=== PATIENT | female | born 1955 | race Caucasian/White ===

== ENCOUNTER → 2016-11-17 | Outpatient (CLI) | payer BC | LOC: RAD 06:57 | PROVIDERS: ATTEND Family Medicine | DX: M54.12 Radiculopathy, cervical region (principal) | CPT/HCPCS: 72141 ==

== ENCOUNTER → 2017-04-11 | Outpatient (CLI) | payer BC ==
[2017-04-11 18:18] LABS: ANION GAP 10 (5-19); BLOOD UREA NITROGEN 23 mg/dL (7-20); CALCIUM 10.3 mg/dL (8.4-10.2); CARBON DIOXIDE 28 mmol/L (22-30); CHLORIDE 102 mmol/L (98-107); CREATININE RESULT 0.67 mg/dL (0.52-1.25); GLUCOSE 100 mg/dL (75-110); POTASSIUM 4.2 mmol/L (3.6-5.0)
--- NOTE | 2017-04-12 08:44 | RADIOLOGY REPORT (SQ) ---
EXAM DESCRIPTION: ANKLE RIGHT COMPLETE COMPLETED DATE/TIME: 04/11/2017 7:01 pm REASON FOR STUDY: PAIN IN RIGHT FOOT I80.201 PHLBTS AND THOMBOPHLB OF UNSP DEEP VESSELS OF R LOW E 87.70 FLUID OVERLOAD, UNSPECIFIED COMPARISON: Right foot three views same date NUMBER OF VIEWS: Three views. TECHNIQUE: AP, lateral, and oblique radiographic images acquired of the right ankle. LIMITATIONS: None. FINDINGS: MINERALIZATION: Normal. BONES: No acute fracture or dislocation. Prominent plantar calcaneal spur. Small spur at the Achill es attachment to the calcaneus. JOINTS: No effusions. Normal alignment at the ankle mortise. SOFT TISSUES: Mild medial and lateral soft tissue swelling. No foreign body. OTHER: No other significant finding. IMPRESSION: No acute fracture or malalignment. Dorsal and plantar calcaneal spurs. Mild subcutaneo us edema. TECHNICAL DOCUMENTATION: JOB ID: [id number] [employer]- All Rights Reserved
--- NOTE | 2017-04-12 08:45 | RADIOLOGY REPORT (SQ) ---
EXAM DESCRIPTION: FOOT RIGHT COMPLETE COMPLETED DATE/TIME: 04/11/2017 7:01 pm REASON FOR STUDY: PAIN IN RIGHT FOOT I80.201 PHLBTS AND THOMBOPHLB OF UNSP DEEP VESSELS OF R LOW E 87.70 FLUID OVERLOAD, UNSPECIFIED COMPARISON: Right ankle three views same date NUMBER OF VIEWS: Three views. TECHNIQUE: AP, lateral and oblique radiographic images acquired of the right foot. LIMITATIONS: None. FINDINGS: MINERALIZATION: Normal. BONES: No acute fracture or dislocation. Plantar and dorsal calcaneal spurs. JOINTS: No ankle joint effusion. SOFT TISSUES: No soft tissue swelling. No foreign body. OTHER: No other significant finding. IMPRESSION: Dorsal and plantar calcaneal spurs. No acute fracture or malalignment. TECHNICAL DOCUMENTATION: JOB ID: [id number]- All Rights Reserved
== END ==
LOC: LAB 17:37
PROVIDERS: ATTEND Family Medicine
DX: I80.201 Phlebitis and thrombophlebitis of unspecified deep vessels of right lower extremity (principal); E87.70 Fluid overload, unspecified; M79.671 Pain in right foot
CPT/HCPCS: 36415; 80048; 85379

== ENCOUNTER 2017-09-16 18:11 | Emergency (ER) | payer OTHER, BC ==
--- NOTE | 2017-09-16 21:12 | RADIOLOGY REPORT (SQ) ---
EXAM DESCRIPTION: KNEE RIGHT 4 VIEWS COMPLETED DATE/TIME: 09/16/2017 8:48 pm REASON FOR STUDY: pain swelling decreased range of motion COMPARISON: None. NUMBER OF VIEWS: Four views. TECHNIQUE: AP, lateral, and both oblique radiographic images acquired of the right knee. LIMITATIONS: None. FINDINGS: Lucency in the lateral femoral epicondylar region, seen best on the oblique projection, co ncerning for possible lytic lesion. No fracture identified. No joint effusion. OTHER: No other significant finding. IMPRESSION: Lucency in the lateral femoral epicondylar region, seen best on the oblique projection, concerning for possible lytic lesion. No fracture identified. TECHNICAL DOCUMENTATION: JOB ID: [id number] [place]-72 2010 [employer]- All Rights Reserved Reading location - IP/workstation name: [email or web address]
--- NOTE | 2017-09-16 22:05 | ER Document Report ---
ED Extremity Problem, Lower - General Chief Complaint: Knee Pain Stated Complaint: RIGHT KNEE PAIN Time Seen by Provider: 09/16/17 19:05 Mode of Arrival: Wheelchair Information source: Patient Notes: 62-year-old female presented ED for complaint of right knee pain. Patient states she has chronic knee pain but is getting much worse. She states over the last 3 weeks it it got much worse and today it is worse than it has ever been. 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 She states that she has been going [id number] getting stuck for a repair of a house and she got up to the car and was not able to walk back due to the pain in her knee. She states she had a walker seat that she pulled out so that she could use it to get around. TRAVEL OUTSIDE OF THE [place] IN LAST 30 DAYS: No - HPI Patient complains to provider of: Pain, Swelling Location: Knee Occurred: Other - The last 3 weeks and even worse today Onset/Duration: Gradual Quality of pain: Burning, Sharp, Throbbing Severity: Severe Pain Level: 5 Context: Other - Chronic worse Recent injury: No Associated symptoms: Painful ambulation Exacerbated by: Hanging down, Movement, Walking Relieved by: Elevation, Ice, Rest - Related Data Allergies/Adverse Reactions: No Known Allergies Allergy (Verified 09/16/17 18:13) Past Medical History - General Information source: Patient - Social History Smoking Status: Former Smoker Cigarette use (# per day): No Chew tobacco use (# tins/day): No Smoking Education Provided: No Frequency of alcohol use: Occasional Drug Abuse: None 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 Lives with: Family Family History: Reviewed & Not Pertinent Patient has suicidal ideation: No Patient has homicidal ideation: No - Past Medical History Cardiac Medical History: Reports: Hx Hypercholesterolemia, Hx Hypertension Pulmonary Medical History: Reports: Hx Asthma, Hx Bronchitis, Hx Pneumonia EENT Medical History: Reports: None Neurological Medical History: Reports: None Endocrine Medical History: Reports: Hx Diabetes Mellitus Type 2 Renal/ Medical History: Reports: None Malignancy Medical History: Reports: None GI Medical History: Reports: Hx Gastroesophageal Reflux Disease, Hx Colonoscopy , Hx Endoscopy Musculoskeltal Medical History: Reports Hx Arthritis, Reports Hx Musculoskeletal Deformity, Reports Hx Musculoskeletal Trauma Skin Medical History: Reports Hx Cellulitis, Reports Hx MRSA Psychiatric Medical History: Reports: None Traumatic Medical History: Reports: None Infectious Medical History: Reports: Hx MRSA Past Surgical History: Reports: Hx Appendectomy, Hx Tubal Ligation - Immunizations Hx Diphtheria, Pertussis, Tetanus Vaccination: Yes - 2012 Review of Systems - Review of Systems Constitutional: No symptoms reported EENT: No symptoms reported Cardiovascular: No symptoms reported Respiratory: No symptoms reported Gastrointestinal: No symptoms reported Genitourinary: No symptoms reported Female Genitourinary: No symptoms reported Musculoskeletal: Joint pain - Right knee, Joint swelling Skin: No symptoms reported Hematologic/Lymphatic: No symptoms reported Neurological/Psychological: No symptoms reported Physical Exam - Vital signs Vitals: Temp Pulse Resp BP Pulse Ox 98.7 F 83 20 145/54 H 95 09/16/17 18:18 09/16/17 18:18 09/16/17 18:18 09/16/17 18:18 09/16/17 18:18 Interpretation: Normal - General General appearance: Appears well, Alert - HEENT Head: Normocephalic, Atraumatic Eyes: Normal Pupils: PERRL - Respiratory Respiratory status: No respiratory distress Chest status: Nontender Breath sounds: Normal Chest palpation: Normal - Cardiovascular Rhythm: Regular Heart sounds: Normal auscultation Murmur: No - Abdominal Inspection: Normal Distension: No distension Bowel sounds: Normal Tenderness: Nontender Organomegaly: No organomegaly - Back Back: Normal, Nontender - Extremities General upper extremity: Normal inspection, Nontender, Normal color, Normal ROM , Normal temperature General lower extremity: Normal color, Normal temperature. No: Jacquelyn's sign Hip: Normal, Nontender Thigh: Nontender, Ecchymosis Knee: Tender, Pain with ROM, Patellar tendon intact, Tender joint line. No: Abrasion, Deformity, Dislocation, Drawer's test instability, Ecchymosis, Instability, Laceration, Laxity with valgus stress, Laxity with varus stress, Popliteal fossa tender, Unable to bear weight - Neurological Neuro grossly intact: Yes Cognition: Normal Orientation: AAOx4 Elis Coma Scale Eye Opening: Spontaneous Elis Coma Scale Verbal: Oriented [place] Coma Scale Motor: Obeys Commands [place] Coma Scale Total: 15 Speech: Normal Motor strength normal: LUE, RUE, LLE, RLE Sensory: Normal - Psychological Associated symptoms: Normal affect, Normal mood - Skin Skin Temperature: Warm Skin Moisture: Dry Skin Color: Normal Course - Re-evaluation Re-evalutation: 09/17/17 01:31 Discussed x-ray with patient and written report given to patient. Patient encouraged to follow-up with primary doctor and orthopedics on Tuesday due to the abnormality on the x-ray. Patient verbalized understanding. Patient was given a [place] in the emergency room and instructed on use of ice elevation ibuprofen and Tylenol. Patient verbalized understanding of instructions. - Vital Signs Vital signs: Temp Pulse Resp BP Pulse Ox 98.7 F 84 16 122/72 95 09/16/17 18:18 09/16/17 22:15 09/16/17 22:15 09/16/17 22:15 09/16/17 22:15 - Diagnostic Test Radiology reviewed: Image reviewed, Reports reviewed Discharge - Discharge Clinical Impression: possible lytic lesion femoral epicondyla Pain in right knee Qualifiers: Chronicity: acute Qualified Code(s): M25.561 - Pain in right knee Condition: Stable Disposition: HOME, SELF-CARE Additional Instructions: You were seen today for pain in your right knee. Your x-ray shows a possible lytic lesion to the lateral femoral epicondylar region. This needs to be followed up by your primary doctor and an orthopedic doctor. ICE & ELEVATION: Apply ice packs frequently against the painful area. Many different schedules are recommended, such as "20 minutes on, 20 minutes off" or "one hour ice, two hours rest." If you need to work, you may need to go longer between ice treatments. You should plan to have the area ice packed AT LEAST one- fourth of the time. The ice should be applied over the wrap, tape, or splint, or over a layer of cloth -- not directly against the skin. Some ice bags have a built-in cloth and can be put directly on the skin. Your injured part should be elevated as much as possible over the next 48 hours. Try to keep the injury above the level of the heart. Avoid use of the injured area. Elevation and rest will decrease the swelling. USE OF [id number] IBUPROFEN: Ibuprofen (Advil, Nuprin, Medipren, Motrin IB) is a medication for fever and pain control. In addition, it has anti- inflammatory effects which may be beneficial, especially in the treatment of injuries. It's best to take ibuprofen with food. Persons with ulcer disease or allergy to aspirin should notify their physician of this before taking ibuprofen. Ibuprofen can be given every four to six hours, for a total of four doses daily. Age Pain or fever dose Antiinflammatory dose 6-8 yr 200 mg (1 tab) 200 mg (1 tab) 9-11 yr 200 mg (1 tab) 200-400 mg (1-2 tab) 11-14 yr 200-400 mg (1-2 tab) 400 mg (2 tab) 15-adult 400 mg (2 tab) 600 mg (3 tab) ORAL NARCOTIC MEDICATION: You have been given a [place] for pain control. This medication is a narcotic. It's best taken with food, as nausea can result if taken on an empty stomach. Don't operate machinery or drive within six hours of taking this medication. Do not combine this medicine with alcohol, or with any medication which can cause sedation (such as cold tablets or sleeping pills) unless you get permission from the physician. Narcotics tend to cause constipation. If possible, drink plenty of fluids and eat a diet high in fiber and fruits. Please be aware that prescription narcotics also have the potential for abuse. People become addicted to these medications because of the general sense of wellbeing that they induce. This feeling along with a significant reduction in tension, anxiety, and aggression provides a stimulating seductive quality to these drugs. Once your pain is under control, we encourage you to discard your unused narcotics. FOLLOW-UP CARE: If you have been referred to a physician for follow-up care, call the physician s office for an appointment as you were instructed or within the next two days. If you experience worsening or a significant change in your symptoms, notify the physician immediately or return to the Emergency Department at any time for re-evaluation. Forms: Elevated Blood Pressure, Return to Work Referrals: ELI LEVY MD [Primary Care Provider] - Follow up as needed MIKAL KOENIG MD [ACTIVE STAFF] - Follow up as needed
[2017-09-16] MEDS ORDERED: HYDROCODONE/ACETAMINOPHEN 5-325 MG TABLET PO ONE (22:07)
[2017-09-16 22:42] VITALS: BP 122/72
== END 2017-09-16 22:35 | disposition home or self-care (01) ==
LOC: ER 18:11
DX: M25.561 Pain in right knee (principal); E78.00 Pure hypercholesterolemia, unspecified; I10 Essential (primary) hypertension; Z86.14 Personal history of Methicillin resistant Staphylococcus aureus infection; Z98.51 Tubal ligation status
CPT/HCPCS: 99284

== ENCOUNTER 2018-06-15 03:46 | Emergency (ER) | payer OTHER, BC ==
[2018-06-15] MEDS ORDERED: DEXAMETHASONE SOD PHOS INJ 10 MG/1 ML VIAL IM ONE (06:50)
--- NOTE | 2018-06-15 06:56 | ER Document Report ---
ED General - General Chief Complaint: Hand Pain Stated Complaint: LEFT HAND INJURY Time Seen by Provider: 06/15/18 06:07 Notes: 63-year-old female presents to the emergency part complaining of left hand and wrist pain. The patient has history of tendinitis. The patient just drove from [place] 3 days in a row. The patient also had to clean up the RV because her fell and was injured. There was a lot of blood so she was using her arms a lot to do cleaning. She has been complaining of a lot of pain of her hand and wrist. She denies any falls denies any trauma. Denies any numbness or tingling. She rates the pain is severe is worse with any kind of movement. She has had carpal tunnel in the past she had a little relief with her carpal tunnel braces. But believes that she has tendinitis. TRAVEL OUTSIDE OF THE [place] IN LAST 30 DAYS: No - Related Data Allergies/Adverse Reactions: No Known Allergies Allergy (Verified 09/16/17 18:13) Past Medical History - Social History Smoking Status: Unknown if Ever Smoked Family History: Reviewed & Not Pertinent Patient has suicidal ideation: No Patient has homicidal ideation: No - Past Medical History Cardiac Medical History: Reports: Hx Hypercholesterolemia, Hx Hypertension Pulmonary Medical History: Reports: Hx Asthma, Hx Bronchitis, Hx Pneumonia Denies: Hx Tuberculosis Endocrine Medical History: Reports: Hx Diabetes Mellitus Type 2 Renal/ Medical History: Denies: Hx Peritoneal Dialysis GI Medical History: Reports: Hx Gastroesophageal Reflux Disease, Hx Colonoscopy , Hx Endoscopy Musculoskeletal Medical History: Reports Hx Arthritis, Reports Hx Musculoskeletal Deformity, Reports Hx Musculoskeletal Trauma Skin Medical History: Reports Hx Cellulitis, Reports Hx MRSA Infectious Medical History: Reports: Hx MRSA Past Surgical History: Reports: Hx Appendectomy, Hx Tubal Ligation - Immunizations Hx Diphtheria, Pertussis, Tetanus Vaccination: Yes - 2012 Review of Systems - Review of Systems Constitutional: denies: Chills, Fever Cardiovascular: denies: Chest pain, Dyspnea Respiratory: denies: Short of breath Gastrointestinal: denies: Abdominal pain, Nausea, Vomiting Genitourinary: denies: Dysuria Musculoskeletal: Joint pain Neurological/Psychological: denies: Headaches -: Yes All other systems reviewed and negative Physical Exam - Vital signs Vitals: Temp Pulse Resp BP Pulse Ox 98.2 F 88 22 H 163/88 H 93 06/15/18 03:46 06/15/18 03:46 06/15/18 03:46 06/15/18 03:46 06/15/18 03:46 - Notes Notes: GENERAL_APPEARANCE: well_nourished, alert, cooperative VITALS: reviewed, see vital signs table. HEAD: no_swelling\tenderness on the head. EYES: conjunctiva_clear. NOSE: no_nasal_discharge. MOUTH: (-)decreased moisture. EXTREMITIES: Left wrist is tender on the dorsum extends up into the flexor aponeurosis of the hand. There is pain upon flexion and extension of the fingers that runs down the palm of the hand extending to the forearm. Is no swelling of the wrist. The wrist joint itself is full active and passive range of motion. There is no crepitus or deformity. There is brisk capillary refill in the nailbeds. There is pain along the flexor tendons of the wrist and forearm. SKIN: warm, dry, good_color, no_rash. MENTAL_STATUS: speech_clear, oriented_X_3, normal_affect, responds_ appropriately to questions. Course - Re-evaluation Re-evalutation: 06/15/18 06:55 The patient presents with tendinitis of the wrist. Patient will be given a shot of steroids here she is diabetic but diet controlled I spoke with her about the sugar complications of this and she stated she has had this before and has never had any high sugars due to steroids. Cautioned her about this and the drink plenty of fluids. We will place her on a steroid taper. Patient got an IM shot of Decadron and will follow-up as needed with orthopedics - Vital Signs Vital signs: Temp Pulse Resp BP Pulse Ox 98.2 F 88 22 H 163/88 H 93 06/15/18 03:46 06/15/18 03:46 06/15/18 03:46 06/15/18 03:46 06/15/18 03:46 Discharge - Discharge Clinical Impression: Tendinitis of wrist Condition: Good Disposition: HOME, SELF-CARE Instructions: Tendonitis ([facility]) Prescriptions: Methylprednisolone [Medrol Dosepack (4 mg/Tab) 21 Tab/Dosepak] 4 mg PO ASDIR PRN #21 tab.ds.pk PRN Reason: Referrals: ELI LEVY MD [Primary Care Provider] - Follow up as needed
[2018-06-15 07:06] VITALS: BP 163/78
== END 2018-06-15 07:06 | disposition home or self-care (01) ==
LOC: ER 03:46
DX: M77.9 Enthesopathy, unspecified (principal); K21.9 Gastro-esophageal reflux disease without esophagitis; E78.00 Pure hypercholesterolemia, unspecified; I10 Essential (primary) hypertension; Z86.14 Personal history of Methicillin resistant Staphylococcus aureus infection
CPT/HCPCS: 99283; 96372; J1100